=== PATIENT | female | born 1955 | race American Indian/Alaskan Native ===

== ENCOUNTER 2020-09-01 09:45 | Outpatient (CLI) | payer BC, SELFPAY ==
[2020-09-01 10:22] LABS: Hemoglobin A1C 7.8 % (<5.7)
== END 2020-09-01 09:46 | disposition home or self-care (01) ==
LOC: CHSLAB 09:49
PROVIDERS: PCP Family Medicine
DX: E11.65 Type 2 diabetes mellitus with hyperglycemia (principal)
CPT/HCPCS: 36415; 83036

== ENCOUNTER → 2020-09-25 13:56 | Outpatient (REF) | payer BC, SELFPAY | LOC: ANHLAB 13:56 | PROVIDERS: PCP Family Medicine; Visit Provider Nurse Practitioner | DX: D49.2 Neoplasm of unspecified behavior of bone, soft tissue, and skin (principal) | CPT/HCPCS: 88304; 88305 ==

== ENCOUNTER 2021-05-14 09:34 | Outpatient (CLI) | payer BC, SELFPAY ==
[2021-05-14 10:29] LABS: Influenza A QL RT-PCR Negative (Negative); Influenza B QL RT-PCR Negative (Negative); SARS-CoV-2 RNA PCR Negative (Negative)
== END 2021-05-14 09:35 | disposition home or self-care (01) ==
LOC: CHSLAB 09:38
PROVIDERS: Visit Provider Physician Assistant
DX: R43.2 Parageusia (principal); R68.89 Other general symptoms and signs; R09.81 Nasal congestion; Z20.822 Contact with and (suspected) exposure to COVID-19
CPT/HCPCS: 87502; C9803; U0003; U0005

== ENCOUNTER 2021-05-21 09:29 | Outpatient (CLI) | payer BC, SELFPAY ==
[2021-05-21 10:01] LABS: Hemoglobin A1C 8.5 % (<5.7)
== END 2021-05-21 09:30 | disposition home or self-care (01) ==
LOC: CHSLAB 09:32
PROVIDERS: PCP Family Medicine
DX: E11.65 Type 2 diabetes mellitus with hyperglycemia (principal)
CPT/HCPCS: 36415; 83036

== ENCOUNTER 2022-01-29 14:32 | Outpatient (CLI) | payer BC, SELFPAY ==
--- NOTE | ~2022-01-29 | XR_ITS ---
Right Shoulder Technique: AP and scapular Y views were obtained. Clinical History: Pain Findings: No fracture or dislocation is seen. Osseous alignment is anatomic. Mild AC joint degenerati ve change present. Glenohumeral joint is intact. Soft tissues are unremarkable. Impression: Mild AC joint degenerative change. Reviewed, dictated and finalized at location [] [employer] Impression: Mild AC joint degenerative change.
== END 2022-01-29 14:33 | disposition home or self-care (01) ==
LOC: CHSIMG 14:35
PROVIDERS: PCP Family Medicine; Visit Provider Family Medicine
DX: M25.511 Pain in right shoulder (principal)
CPT/HCPCS: 73030

== ENCOUNTER 2022-02-13 09:52 | Outpatient (RCR) | payer BC, SELFPAY ==
--- NOTE | 2022-02-21 07:23 | BUPTOPEVAL1 ---
Assessment and note entered by JT File, PT Evaluation Information Assessment Status Evaluation Diagnosis R shoulder and elbow pain Onset 02/04/22 Subjective Information patient reports she is coming to therapy for R shoulder and elbow pain. she reports years ago her elbow began causing her pain. she reports she was making the bed at home leaning on the R arm on the bed. she reports she felt the arm rotate and felt a pop. she reports collapsed in pain and fell into the bed. she reports she has been able to pop the elbow a few times without pain since. she reports she had an xray of the R elbow at the time . she reports in general it got better, but she continues to have acheing and popping in the R elbow. she reports now the shoulder has been going on for the last year or so. she reports she thinks sleeping on a hard mattress has caused her shoulder pain. she reports she is not able to lay on the R side. she reports the R shoulder will even hurt if she lays on the L side. she rpeorts she has difficulty extending the elbow in the morning, and reaching out with the arm to her side . she reports she has not had an injection to the R shoulder. she reports she does not like steroids . she reports she has reactions to a lot of medicines. Reported Pain Level Pain Score 7,7: Self Report Assessment PT Clinical Summary mrs. an presents to skilled PT services for evaluation and treatment of R shoulder and elbow pain. she presents this date with decreased R shoulder strength, decreased R shoulder rom, pain, and positive special tests indicating an injury to the RTC of the R shoulder. she would benefit from an MRI evaluation to determine the severity of this injury, and continue with skilled PT to improve her objective/functional deficits. Plan of Care Interventions Electrical Stimulation,Hot Pack/Cold Pack,Manual Therapy,Neuro Re-education,Patient/Caregiver Educati,Therapeutic Activities,Therapeutic Exercise PT Services Indicated Yes Treatment Frequency and 3x weekly for 12 vistis Duration These treatments will address the objective and functional deficits as defined above. The patient will be advanced safely and appropriately in order for the patient to progress towards his/her prior level of function. Additional exercises will be introduced and as well as a comprehensive home exercise program upon discharge, if nee
--- NOTE | 2022-03-11 15:41 | PTOPPROG ---
Assessment and note entered by Payton Don DPT Evaluation Information Assessment Status Progress Diagnosis R shoulder and elbow pain Onset 02/04/22 Subjective Information patient reports that she feels like her shoulder is feeling better but pain continues to be unpredictable. She samson report pain is worse with rotating her arm for activities such as reaching into her coat. She reports sleeping is better at this time. Patient is still waiting on MRI. Assessment PT Clinical Summary Patient is making good progress towards goals at this time. She demonstrates improved shoulder AROM and strength as reported improvement in function and sleep. patient continues to have reports of pain and demonstrates weakness. She continues to be a good candidate for skilled PT Plan of Care Interventions Electrical Stimulation,Hot Pack/Cold Pack,Manual Therapy,Mechanical Traction,Neuro Re-education, Patient/Caregiver Educati,Therapeutic Activities, Therapeutic Exercise PT Services Indicated Yes Treatment Frequency and 2 remaining visits Duration These treatments will address the objective and functional deficits as defined above. The patient will be advanced safely and appropriately in order for the patient to progress towards his/her prior level of function. Additional exercises will be introduced and as well as a comprehensive home exercise program upon discharge, if needed, ?to ensure carryover of functional gains achieved in the clinic. This treatment plan has been reviewed and agreement upon by the patient.
--- NOTE | 2022-03-14 15:20 | PTOPREEVAL ---
Assessment and note entered by JT File, PT Evaluation Information Assessment Status Re-evaluation Diagnosis R shoulder and elbow pain Onset 02/04/22 Subjective Information patient reports in general she is better in all factors. she reports she has better strength, better rom, and less pain overall. however, at times she will still have high bouts of sharp pain . she reports she has the most pain with trying to reach behind her head, put on a coat, and with pouring a pitcher with the R hand. Reported Pain Level Pain Score 0,3: Self Report Assessment PT Clinical Summary mrs. an presents to skilled PT services for her 12th skilled therapy visit. as of this date, she continues to have pain in the R shoulder and elbow . however, she presents with greatly improved rom and strength. she continues to have limitations in strength, rom, pain, and functional performance from her goals for skilled PT, but is progressed in all measures. she would benefit from continued skilled PT with focus on the achievement of all goals and return to prior level functional activity performance without limitations. Plan of Care Interventions Electrical Stimulation,Hot Pack/Cold Pack,Manual Therapy,Mechanical Traction,Neuro Re-education, Patient/Caregiver Educati,Therapeutic Activities, Therapeutic Exercise PT Services Indicated Yes Treatment Frequency and continue 1x weekly for 3 more visits Duration These treatments will address the objective and functional deficits as defined above. The patient will be advanced safely and appropriately in order for the patient to progress towards his/her prior level of function. Additional exercises will be introduced and as well as a comprehensive home exercise program upon discharge, if needed, ?to ensure carryover of functional gains achieved in the clinic. This treatment plan has been reviewed and agreement upon by the patient.
--- NOTE | 2022-04-02 14:45 | PTOPDC ---
Assessment and note entered by JT File, PT Evaluation Information Assessment Status Re-evaluation Diagnosis R shoulder and elbow pain Onset 02/04/22 Subjective Information patient reports she is sleeping better, the R arm is easier to lift and move. she reports there is less pain overall. she reports she feels 60% better on days like today, but less on colder/ windy days. she reports she has difficulty with puting on a jacket, scrubbing herrera/tables/windows , and lifting up and out. she reports difficulty scraping ice off the car with the R arm. she reports she has avoided deep cleaning her shower and other areas in the house due to fear of increased pain. Reported Pain Level Pain Score 0,2: Self Report Assessment PT Clinical Summary mrs. an presents with continued pain in the R shoulder. however, subjectively she reports improved rom, strength, and decreased pain overall . she has met goals for shoulder rom, strength of the elbow, functional reaching. she is going to have an MRI next week, and will follow up with therapy on the results of the MRI. as of this date , she will DC skilled PT and continue with HEP independent at home. Plan of Care Treatment Frequency and DC to independent Duration
== END 2022-04-02 16:06 | disposition home or self-care (01) ==
LOC: CHSPT 09:52
PROVIDERS: PCP Family Medicine; Visit Provider Family Medicine
DX: M25.511 Pain in right shoulder (principal); M25.512 Pain in left shoulder
CPT/HCPCS: 97014; 97110; 97161; G0283

== ENCOUNTER → 2023-03-18 11:44 | Outpatient (CLI) | payer BC, SELFPAY ==
--- NOTE | ~2023-03-18 | CT_ITS ---
EXAMINATION: CT sinus wo con DATE: 03/18/2023 11:58 INDICATION: Chronic sinusitis. Septorhinoplasty surgery in 2005. TECHNIQUE: Computed tomography (CT) of the paranasal sinuses was performed without contrast. Iterativ e reconstruction technique was employed. Exam dose: 262.31 mGy-cm total exam DLP. COMPARISON: 12/25/2005 CT sinuses FINDINGS: There is rightward bowing of the nasal septum. Left nasal antral window. Partial bilateral ethmoidectomies. The ostiomeatal units are patent bilaterally. Up to approximately 5.8 x 10 mm focal soft tissue thickening of the inferomedial aspect of the left f rontal sinus. The frontal sinuses are otherwise normally developed and aerated. Minimal posterior left ethmoid focal soft tissue thickening. The maxillary sinuses are clear. 7.7 mm anteromedial right sphenoid sinus probable mucus retention cyst. Sphenoid sinuses are otherwis e normally developed and aerated. The mastoid air cells are well-developed and aerated bilaterally. Middle and inner ear apparatus appear normal bilaterally. IMPRESSION: Rightward bowing of nasal septum Left nasal antral window and partial bilateral ethmoidectomies Focal mild soft tissue thickening at inferomedial left frontal sinus, posterior left ethmoid and infe romedial right sphenoid sinuses Patent ostiomeatal units and mastoid air cells Reviewed, dictated and finalized at Location [facility]. Reviewed, dictated and finalized at location B. X RAY IMPRESSION: Rightward bowing of nasal septum Left nasal antral window and partial bilateral ethmoidectomies Focal mild soft tissue thickening at inferomedial left frontal sinus, posterior left ethmoid and inferomedial right sphenoid sinuses Patent ostiomeatal units and mastoid air cells
== END ==
PROVIDERS: PCP Otolaryngology; Visit Provider Otolaryngology
DX: J32.9 Chronic sinusitis, unspecified (principal); J34.2 Deviated nasal septum; J34.89 Other specified disorders of nose and nasal sinuses
CPT/HCPCS: 70486